=== PATIENT | female | born 2000 | race Caucasian/White ===

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

== ENCOUNTER 2020-03-24 23:22 | Emergency (ER) | payer OTHER ==
[~2020-03-24] VITALS: Ht 160 cm; Wt 97.7 kg
[2020-03-25 00:43] LABS: COLLECTION METHOD CLEAN CATCH
[2020-03-25 00:48] LABS: PH 7 (5-8); SQUAMOUS EPITHELIAL 0-2 /hpf; URINE APPEARANCE Clear; URINE BACTERIA Rare /hpf; URINE BILIRUBIN Negative (NEGATIVE); URINE BLOOD Negative (NEGATIVE); URINE COLOR Straw; URINE GLUCOSE Negative (NEGATIVE); URINE KETONE Negative (NEGATIVE); URINE LEUKOCYTE ESTERASE Negative (NEGATIVE); URINE NITRATE Negative (NEGATIVE); URINE PROTEIN(semi-quant) Negative (NEGATIVE); URINE RBC None Seen /hpf; URINE UROBILINOGEN Negative (NEGATIVE)
[2020-03-25 01:24] LABS: BASO % 0.3 % (0.0-2.0); EOS # 0.1 (0.0-0.7); GRAN # 5.7 (1.4-6.5); GRAN % 56.3 % (42.2-75.2); LYMPH # 3.5 (1.2-3.4); MEAN CELL VOLUME 80 fl (80.0-95.0); MEAN CORPUSCULAR HEMOGLOBIN 28 pg (26.0-32.0); MEAN CORPUSCULAR HGB CONC 35 g/dl (33.0-37.0); MEAN PLATELET VOLUME 10.6 fl (7.4-10.4); MONO # 0.7 (0.1-0.6); MONO % 7.1 % (1.7-9.3); PLATELET COUNT 268 K/mm3 (130-400); RED BLOOD COUNT 4.24 M/mm3 (4.10-5.30); REDCELL DISTRIBUTION WIDTH-CV 12.8 % (11.5-14.5)
[2020-03-25 01:25] LABS: HEMATOCRIT 34.1 % (35.0-45.0)
[2020-03-25 01:34] LABS: ALBUMIN 4.2 gm/dL (3.5-5.0); BILIRUBIN,TOTAL 0.3 mg/dL (0.0-1.0); CALCIUM 9.4 mg/dL (8.4-10.2); CREATININE, serum 0.53 (0.52-1.25); POTASSIUM 3.5 mmol/L (3.4-5.0); TOTAL PROTEIN 7.8 gm/dL (6.4-8.2)
[2020-03-25 03:14] VITALS: BP 134/70; PULSE 62; TEMP 98
== END 2020-03-25 03:13 | disposition home or self-care (01) ==
LOC: COL.ER 23:22
PROVIDERS: Emergency Medicine
DX: O21.9 Vomiting of pregnancy, unspecified (principal); O26.891 Other specified pregnancy related conditions, first trimester; R10.9 Unspecified abdominal pain; Z3A.12 12 weeks gestation of pregnancy

== ENCOUNTER 2020-07-08 13:01 | Outpatient (CLI) | payer OTHER, MEDICAID ==
[~2020-07-08] VITALS: Ht 160 cm; Wt 98.2 kg
--- NOTE | 2020-07-08 13:05 | NUR ---
1305-G1 28.0 Week Patient ambulatory to LR 4 with compolait of fall at 1130 today onto hands and knees after tripping on curb. States she did not hit her stomach or head. No contractions or leaking of fluid or Vaginal bleeding. Reports decreased movement. Assisted onto EFM. Reactive FHR noted. movement palpated and patient agrees she felt movement. Maternal HR elevated see flow record. all other VSS. Assessment complete. 1332-Updatd Dr. Delgadillo, see MD notification. 1341-Per patient MD order 1Gm tylenol given for patient headache. Again patient denies hitting head and reports having chronic headaches.
[2020-07-08 13:13] VITALS: BP 108/53; PULSE 123; TEMP 98.3
[2020-07-08] MEDS ORDERED: PRENATAL (13:20)
[2020-07-08 13:30] VITALS: BP 117/70; PULSE 108
[2020-07-08 14:00] VITALS: BP 118/59; PULSE 88
--- NOTE | 2020-07-08 14:20 | NUR ---
1420-Reviewed discharge instructions. Denies questions. 1427-Ambulatory off unit.
== END 2020-07-08 14:27 | disposition home or self-care (01) ==
LOC: LDR 13:01 → LDRO 13:01
DX: O9A.213 Injury, poisoning and certain other consequences of external causes complicating pregnancy, third trimester (principal); Z3A.28 28 weeks gestation of pregnancy; W10.1XXA Fall (on)(from) sidewalk curb, initial encounter
CPT/HCPCS: OP

== ENCOUNTER 2020-08-12 15:18 | Outpatient (CLI) | payer OTHER, MEDICAID ==
[~2020-08-12] VITALS: Ht 160 cm; Wt 102.3 kg
--- NOTE | 2020-08-12 14:00 | NUR ---
1555- Discharge paperwork given and explained. Pt denies questions. 1400- Pt ambulates off unit independently in stable condition.
[~2020-08-12 15:18] MED LIST changes: +PRENATAL
--- NOTE | 2020-08-12 15:18 | NUR ---
1518- Pt arrives on unit ambulatory with complaints of possible SROM apprx 1 hr ago. Pt denies wearing a pad into the hospital and states she has not been leaking much since. Pt instructed to change into gown. 1523- Pt into bed, EFM and TOCO on and tracing. VSS. Assessment complted. Pt denies VB, cramping, or contractions. +FM per Pt. 1537- Amniotrace test completed, negative, no color change noted. SVE by this RN, cervix anterior but closed. Vagina feels dry during exam.
[2020-08-12 15:21] VITALS: BP 109/67; PULSE 123; TEMP 98.7
[2020-08-12] MEDS ORDERED: PRILOSEC10 MG PO (15:30)
[2020-08-12] MEDS ORDERED: ZOO CHEWS1 CTB PO (15:30)
[2020-08-12] MEDS ORDERED: NATURAL IRON65 MG (15:30)
[2020-08-12] MEDS ORDERED: TYLENOL 500MG500 MG PO (15:31)
--- NOTE | 2020-08-12 16:00 | NUR ---
1555- Discharge paperwork given and explained. Pt denies questions. 1400- Pt ambulates off unit, independently, in stable condition.
== END 2020-08-12 16:00 | disposition home or self-care (01) ==
LOC: LDRO 15:18
DX: Z34.93 Encounter for supervision of normal pregnancy, unspecified, third trimester (principal); Z3A.33 33 weeks gestation of pregnancy

== ENCOUNTER 2020-09-17 17:38 | Outpatient (CLI) | payer OTHER, MEDICAID ==
[~2020-09-17] VITALS: Ht 160 cm; Wt 104.5 kg
[~2020-09-17 17:38] MED LIST changes: +NATURAL IRON65 MG; +PRILOSEC10 MG PO; +TYLENOL 500MG500 MG PO; +ZOO CHEWS1 CTB PO
[2020-09-17 17:45] VITALS: BP 134/72; PULSE 120; TEMP 97.9
--- NOTE | 2020-09-17 17:45 | NUR ---
Presents to labor and delivery. States has not felt baby move since noon. heart rate monitor on. heart rate 150 with accelerations and no decelerations. Denies contractions. Assessment done, questions offered and answered.
[2020-09-17 19:22] VITALS: BP 134/72; PULSE 120; TEMP 97.9
== END 2020-09-17 19:35 | disposition home or self-care (01) ==
LOC: LDRO 17:38 → LDR 17:41 → LDRO 19:35
DX: Z34.93 Encounter for supervision of normal pregnancy, unspecified, third trimester (principal); Z3A.38 38 weeks gestation of pregnancy
CPT/HCPCS: OP

== ENCOUNTER 2020-10-01 08:30 | Outpatient (CLI) | payer OTHER, MEDICAID ==
[~2020-10-01] VITALS: Ht 160 cm; Wt 104.8 kg
[~2020-10-01 08:30] MED LIST changes: -MOTRIN 600600 MG/TAB PO
--- NOTE | 2020-10-01 08:40 | NUR ---
Patient here via wheelchair with significant other, changed into gown, FHR/TOCO monitors placed. Patient states "started steven around 0300 and are about 5 minutes apart, and getting stronger". Plan of care discussed. 0845: SVE--/2 Dr. Delgadillo called and notified. Will continue to monitor.
[2020-10-01 09:00] VITALS: BP 133/81; PULSE 118; TEMP 97.9
[2020-10-01 09:30] VITALS: BP 123/82; PULSE 96
--- NOTE | 2020-10-01 09:45 | NUR ---
SVE-1-2/80/-2 and patient updated. called and discharge orders received. 0952: Patient off monitor to void. Patient given discharge instructions and verbalizes understanding. 1020: This RN ambulates off unit with patient and significant other. Patient was scheduled for COVID swab but missed this due to coming to get checked for labor. 1025: This RN swabs patient while patient sits in vehicle and patient tolerates well. Swab taken to lab.
[2020-10-01 09:51] VITALS: BP 133/95; PULSE 95
== END 2020-10-01 10:20 | disposition home or self-care (01) ==
LOC: LDRO 08:30
DX: O62.9 Abnormality of forces of labor, unspecified (principal); Z3A.40 40 weeks gestation of pregnancy

== ENCOUNTER → 2020-10-01 | Outpatient (CLI) | payer OTHER, MEDICAID ==
[~2020-10-01] MED LIST changes: +MOTRIN 600600 MG/TAB PO
== END ==
LOC: ZCOL.LAB 08:00
DX: Z20.828 Contact with and (suspected) exposure to other viral communicable diseases (principal)

== ENCOUNTER 2020-10-02 01:45 | Inpatient (IN) | payer OTHER, MEDICAID ==
[2020-10-02] VITALS (51 sets, daily range): BP systolic 104–163; BP diastolic 52–94; PULSE 71–148; TEMP 98.1–99.2
[~2020-10-02] VITALS: Ht 160 cm; Wt 104.5 kg
--- NOTE | 2020-10-02 01:50 | NUR ---
To unit for labor assessment, accompanied by boyfriend. Pt states "I've been steven all day and now they are really painful and close together. I was here earlier and they told me to come back if heraclioey got stronger and closer together" Oriented to room, monitor, plan of care.
--- NOTE | 2020-10-02 02:00 | NUR ---
SVE as noted, pt tolerates exam w difficulty. Difficulty maintaining tracing r/t pt's body habitus.
[2020-10-02 04:48] LABS: BASO % 0.3 % (0.0-2.0); EOS # 0.1 (0.0-0.7); EOS % 0.5 % (0-4.0); GRAN % 64.7 % (42.2-75.2); HEMOGLOBIN 11.7 g/dl (12.0-15.0); LYMPH # 3.6 (1.2-3.4); LYMPH % 26.3 % (20.0-51.0); MEAN CELL VOLUME 79 fl (80.0-95.0); MEAN CORPUSCULAR HEMOGLOBIN 26 pg (26.0-32.0); MEAN CORPUSCULAR HGB CONC 33 g/dl (33.0-37.0); MEAN PLATELET VOLUME 12.8 fl (7.4-10.4); MONO # 1.1 (0.1-0.6); MONO % 7.6 % (1.7-9.3); PLATELET COUNT 255 K/mm3 (130-400); RED BLOOD COUNT 4.46 M/mm3 (4.10-5.30); REDCELL DISTRIBUTION WIDTH-CV 13.7 % (11.5-14.5)
--- NOTE | 2020-10-02 07:55 | NUR ---
0755- Patient sitting upright in bed for epidural placement. Simona Tamayo CRNA at bedside. Difficulty tracing FHR strip continuously due to maternal position and habitus. SPO2 applied. 0805- Epidural test dose by Simona Tamayo CRNA. See anesthesia record. 0810- Patient repositioned WL following epidural. 0815- BP noted hypotensive 88/60, repeat 86/59. Patient LL position, HOB lowered, LR bolus infusing. Ephedrine given, see EMAR. Patient reports improvement in nausea after interventions. 0818- Roles at bedside. 0825- Vertex presentation confirmed via bedside ultrasound. Plan of care to allow patient to rest after epidural and hypotensive episode and will return for SVE when stable.
--- NOTE | 2020-10-02 08:51 | NUR ---
Roles at bedside. SVE per provider at 0853 /-2. 854- AROM by Dr. Solares for moderate amount of lightly meconium stained fluid noted. IUPC placed per provider at 0856 due to difficulty tracing contractions via toco. Pericare given and patient repositioned LL. Updated on plan of care. Orders to start Pitocin augmentation if contractions are not adequate following IUPC placement.
--- NOTE | 2020-10-02 09:30 | NUR ---
MVUs for : 95
--- NOTE | 2020-10-02 09:45 | NUR ---
MVUs for [id number]: 155
--- NOTE | 2020-10-02 10:00 | NUR ---
MVUs for [id number]: 150
--- NOTE | 2020-10-02 10:15 | NUR ---
MVUs for [id number]: 155
--- NOTE | 2020-10-02 10:30 | NUR ---
MVUs from [id number]: 205
--- NOTE | 2020-10-02 10:45 | NUR ---
MVUs vvit [id number]: 265
--- NOTE | 2020-10-02 14:10 | NUR ---
1410-IUPC noted "baseline pressure offscale." RN at bedside palpating abdomen, difficulty palpating in lateral position. Patient requesting lateral position. unable to calculate MVUs. SVE at 1447 reveals 8-9/100-0. IUPC noted to be slightly dislodged at this time due to descent. 1440- attempt to replace IUPC with toco, unable to trace. IUPC re-connected in order to note when contractions take place.
--- NOTE | 2020-10-02 16:30 | NUR ---
1630- Patient begins pushing with contractions with RN at bedside. 165- Dr. Solares at bedside. Patient continues to push with contractions. Physician remains on unit. 171- Dr. Solares called to bedside for impending delivery. Nursery RN to bedside. 171- Dr. Solares at bedside. IUPC removed per physician. Patient assisted to footplates, periprep completed. 1723- of viable female attended by Dr. Solares. to mothers abdomen, care of infant to Anjana Israel RN. Apgars 8/9/9. 1726- Spontaneous delviery of placenta. Pitocin bolus started at 333 ml/hr/protocol. Fundus firm at umbilicus. Second degree perineal laceration repaired by physician, patient tolerates well. Pericare given and ice pack applied. patient updated on plan of care and safety reviewed.
--- NOTE | 2020-10-02 18:45 | NUR ---
1845 REG DIET TAKEN AND 400CC EMESIS. FEELING VERY NAUSEATED. PHENERGAN 12.5MG IV GIVEN WITH GOOD RESULTS. IV FLUIDS CONT AT THIS TIME.
--- NOTE | 2020-10-02 19:30 | NUR ---
1930 MOVES LEGS WELL IN BED BUT RIGHT LEG STILL NUMB AND UNABLE TO STAND ON. PERICARE DONE IN BED AND PAD ON. LABIA SWOLLEN. SCANT AMOUNT VAG BLEEDING. IV FLUIDS INFUSED AND TO INT. EPID CATH REMOVED. TO W/C WITH ASSIST X2 AND TO 207. HARPREET WELL.
[2020-10-03 04:30] VITALS: BP 123/51; PULSE 131; TEMP 97.7
[2020-10-03] MEDS ORDERED: MOTRIN 600600 MG/TAB PO (08:20)
--- NOTE | 2020-10-03 08:43 | NUR ---
Initial visit; Mom indisposed, Complex Care Nurse Practitioner spoke with Dad, offering congratulations and God's blessings for the of their daughter. Complex Care Nurse Practitioner thanked family for choosing [facility].
[2020-10-03 09:00] VITALS: BP 102/55; PULSE 108; TEMP 97.7
[2020-10-03 13:10] VITALS: BP 112/70; PULSE 109; TEMP 97.4
[2020-10-03 17:45] VITALS: BP 108/64; PULSE 94; TEMP 97.7
[2020-10-03 20:00] VITALS: BP 115/68; PULSE 97; TEMP 98.5
[2020-10-04 10:00] VITALS: BP 121/84; PULSE 94; TEMP 97.4
--- NOTE | 2020-10-04 10:00 | NUR ---
Up and around in room. Changes babys diaper.
--- NOTE | 2020-10-04 13:00 | NUR ---
Rests in bed, alert. Discharge instructions given, verbalizes understanding.
== END 2020-10-04 13:20 | disposition home or self-care (01) | DRG 807 ==
LOC: LDRO 01:45 → LDR 02:30 → LDRO 03:46 → OB 03:46
PROVIDERS: Obstetrics & Gynecology; ADMIT Obstetrics & Gynecology
PROC: 10E0XZZ Delivery of Products of Conception, External Approach (ICD-10-PCS; principal; 2020-10-02)
PROC: 0KQM0ZZ Repair Perineum Muscle, Open Approach (ICD-10-PCS; 2020-10-02)
PROC: 10907ZC Drainage of Amniotic Fluid, Therapeutic from Products of Conception, Via Natural or Artificial Opening (ICD-10-PCS; 2020-10-02)
DX: O48.0 Post-term pregnancy (principal); Z37.0 Single live birth; O77.0 Labor and delivery complicated by meconium in amniotic fluid; O69.81X0 Labor and delivery complicated by cord around neck, without compression, not applicable or unspecified; O70.1 Second degree perineal laceration during delivery; Z3A.40 40 weeks gestation of pregnancy
CPT/HCPCS: J2550; J2590; J7120

== ENCOUNTER 2021-06-11 08:41 | Emergency (ER) | payer OTHER, MEDICAID ==
[~2021-06-11] VITALS: Ht 162.6 cm; Wt 100.0 kg
[~2021-06-11 08:41] MED LIST changes: +MOTRIN 600600 MG/TAB PO
[2021-06-11 08:46] VITALS: TEMP 99.3
[2021-06-11 09:48] LABS: BASO % 0.3 % (0.0-2.0); EOS % 0.3 % (0-4.0); GRAN # 9.6 (1.4-6.5); GRAN % 82.5 % (42.2-75.2); HEMATOCRIT 44.3 % (35.0-45.0); HEMOGLOBIN 14.6 g/dl (12.0-15.0); LYMPH # 1.4 (1.2-3.4); LYMPH % 11.8 % (20.0-51.0); MEAN CELL VOLUME 81 fl (80.0-95.0); MEAN CORPUSCULAR HEMOGLOBIN 27 pg (26.0-32.0); MEAN CORPUSCULAR HGB CONC 33 g/dl (33.0-37.0); MEAN PLATELET VOLUME 10.7 fl (7.4-10.4); MONO # 0.6 (0.1-0.6); MONO % 4.8 % (1.7-9.3); PLATELET COUNT 285 K/mm3 (130-400); RED BLOOD COUNT 5.47 M/mm3 (4.10-5.30); REDCELL DISTRIBUTION WIDTH-CV 13.1 % (11.5-14.5)
[2021-06-11 09:51] LABS: ALANINE AMINOTRANSFERASE 20 U/L (4-34); ALKALINE PHOSPHATASE 86 U/L (50-136); ANION GAP 13 mmol/L (7-16); AST,SGOT 31 U/L (15-37); BILIRUBIN,TOTAL 0.6 mg/dL (0.0-1.0); BLOOD UREA NITROGEN 10 mg/dL (7-17); CALCIUM 9.7 mg/dL (8.4-10.2); CARBON DIOXIDE 21 mmol/L (22-30); CHLORIDE 105 mmol/L (98-107); CREATININE, serum 0.72 (0.52-1.25); GLUCOSE 104 mg/dL (74-106); POTASSIUM 3.8 mmol/L (3.4-5.0); SODIUM 139 mmol/L (137-145); TOTAL PROTEIN 9.1 gm/dL (6.4-8.2)
[2021-06-11 10:07] LABS: TROPONIN-I < 0.012 ng/mL (0.000-0.035)
[2021-06-11 10:39] LABS: COLLECTION METHOD CLEAN CATCH
[2021-06-11 10:47] LABS: AMORPHOUS CRYSTAL Present /uL; MUCOUS Present /lpf; PH 5 (5-8); URINE APPEARANCE Cloudy; URINE BACTERIA Rare /hpf; URINE BILIRUBIN Negative (NEGATIVE); URINE BLOOD 3+ (NEGATIVE); URINE COLOR Yellow; URINE GLUCOSE Negative (NEGATIVE); URINE KETONE Negative (NEGATIVE); URINE LEUKOCYTE ESTERASE Negative (NEGATIVE); URINE NITRATE Negative (NEGATIVE); URINE PROTEIN(semi-quant) 1+ (NEGATIVE); URINE RBC >50 /hpf; URINE UROBILINOGEN Negative (NEGATIVE)
[2021-06-11 12:31] VITALS: BP 130/84; PULSE 95
== END 2021-06-11 12:31 | disposition home or self-care (01) ==
LOC: COL.ER 08:41
PROVIDERS: Emergency Medicine
DX: B34.9 Viral infection, unspecified (principal); R00.0 Tachycardia, unspecified; J45.909 Unspecified asthma, uncomplicated
CPT/HCPCS: J7120

== ENCOUNTER 2021-08-18 11:55 | Emergency (ER) | payer SELFPAY ==
[~2021-08-18] VITALS: Ht 162.6 cm; Wt 100.0 kg
[2021-08-18 12:07] VITALS: TEMP 98.6
[2021-08-18 13:55] VITALS: BP 115/72; PULSE 96
== END 2021-08-18 13:55 | disposition home or self-care (01) ==
LOC: COL.ER 11:55
DX: S09.90XA Unspecified injury of head, initial encounter (principal); V43.52XA Car driver injured in collision with other type car in traffic accident, initial encounter

== ENCOUNTER 2024-06-21 07:28 | Emergency (ER) | payer OTHER ==
[~2024-06-21] VITALS: Ht 160 cm; Wt 104.5 kg
[2024-06-21 07:39] VITALS: TEMP 98.1
[2024-06-21] MEDS ORDERED: LR 1,000 ML IV ONE (07:45)
[2024-06-21] MEDS ORDERED: Ondansetron 4 MG/2 ML VIAL IV ONE (07:45)
[2024-06-21 08:36] LABS: BASO % 0.4 % (0.0-2.0); EOS # 0.1 K/mm3 (0.0-0.7); EOS % 1.4 % (0.0-4.0); GRAN # 4.1 K/mm3 (1.4-6.5); GRAN % 53.4 % (42.2-75.2); HEMATOCRIT 40.4 % (37.0-47.0); HEMOGLOBIN 13.6 g/dl (12.5-16.0); LYMPH # 2.7 K/mm3 (1.2-3.4); LYMPH % 35.8 % (20.0-51.0); MEAN CELL VOLUME 84 fl (80.0-100.0); MEAN CORPUSCULAR HEMOGLOBIN 28 pg (27-31); MEAN CORPUSCULAR HGB CONC 34 g/dl (33.0-37.0); MEAN PLATELET VOLUME 10.3 fl (7.4-10.4); MONO # 0.7 K/mm3 (0.1-0.6); MONO % 8.9 % (1.7-9.3); PLATELET COUNT 279 K/mm3 (130-400); RED BLOOD COUNT 4.81 M/mm3 (4.10-5.30); REDCELL DISTRIBUTION WIDTH-CV 12.2 % (11.5-14.5)
[2024-06-21 08:56] LABS: ALBUMIN 4.3 g/dL (3.5-5.0); BILIRUBIN,TOTAL 0.6 mg/dL (0.2-1.2); C-REACTIVE PROTEIN 0.14 mg/dL (0.00-0.50); CALCIUM 9.9 mg/dL (8.4-10.2); CREATININE, serum 0.8 mg/dL (0.57-1.11)
[2024-06-21 09:17] LABS: COLLECTION METHOD CLEAN CATCH
[2024-06-21 10:06] LABS: URINE APPEARANCE CLEAR (CLEAR/HAZY); URINE BLOOD NEGATIVE (NEGATIVE); URINE COLOR YELLOW (YELLOW); URINE GLUCOSE NEGATIVE (NEGATIVE); URINE KETONE NEGATIVE (NEGATIVE); URINE NITRATE NEGATIVE (NEGATIVE); URINE PROTEIN(semi-quant) NEGATIVE (NEGATIVE); URINE UROBILINOGEN 0.2 E.U/dL (0.2-1.0)
[2024-06-21] MEDS ORDERED: AMOXICILLIN 8751 TAB PO (11:23)
[2024-06-21] MEDS ORDERED: PREDNISONE20 MG PO (11:23)
[2024-06-21 11:42] VITALS: BP 135/82; PULSE 86
== END 2024-06-21 13:08 | disposition home or self-care (01) ==
LOC: COL.ER 07:28
PROVIDERS: Family Medicine
DX: J32.9 Chronic sinusitis, unspecified (principal); I44.0 Atrioventricular block, first degree; G93.0 Cerebral cysts; Z91.040 Latex allergy status
CPT/HCPCS: J2405; J7120